=== PATIENT | female | born 1960 | race Caucasian/White ===

== ENCOUNTER → 2018-09-02 10:41 | Outpatient (CLI) | payer OTHER, SELFPAY ==
[2018-09-02 11:40] LABS: Alanine Aminotransferase 41 IU/L (9-52); Albumin 4.5 g/dL (3.5-5.0); Albumin Globulin Ratio 1.3 (1.0-2.8); Alkaline Phosphatase 100 U/L (38-126); Aspartate Aminotransferase 33 IU/L (14-36); BUN Creatinine Ratio 12.7 (6-22); Bilirubin Total 0.5 mg/dL (0.2-1.3); Blood Urea Nitrogen 14 mg/dL (7-17); Calcium 9.7 mg/dL (8.4-10.2); Carbon Dioxide 26 mmol/L (22-32); Chloride 103 mmol/L (98-107); Estimated Glomerular Filt Rate 50.7 mL/min (>60); Globulin 3.5 g/dL (1.7-4.1); Glucose 127 mg/dL (80-110); HEMOLYSIS < 15 (0-50); Potassium 4.4 mmol/L (3.4-5.1); Sodium 145 mmol/L (137-145)
== END ==
PROVIDERS: PCP Internal Medicine; Visit Provider Internal Medicine
DX: I10 Essential (primary) hypertension (principal)
CPT/HCPCS: 36415; 80053

== ENCOUNTER → 2019-02-26 13:19 | Outpatient (CLI) | payer OTHER, SELFPAY ==
--- NOTE | 2019-02-26 | DI.MG.S_ITS ---
BILATERAL DIGITAL SCREENING MAMMOGRAM 3D/2D WITH CAD: 02/26/2019 CLINICAL: Routine screening. Comparison is made to exams dated: 01/19/2018 mammogram, 05/08/2016 mammogram, and 06/09/2013 mammogram - [facility]. There are scattered fibroglandular elements in both breasts. Current study was also evaluated with a Computer Aided Detection (CAD) system. There are benign calcifications in both breasts. No significant masses, calcifications, or other findings are seen in either breast. There has been no significant interval change. IMPRESSION: There is no mammographic evidence of malignancy. A 1 year screening mammogram is recommended. This exam was interpreted at Station ID: [id number]. NOTE: For mammograms, a report in lay terms will be sent to the patient. Approximately 15% of breast malignancies will not be visualized mammographically. In the management of a palpable breast mass, a negative mammogram must not discourage biopsy of a clinically suspicious lesion. Electronically Signed By: Thierno johnston/prabhu:02/26/2019 16:13:33 letter sent: Normal Exam ACR BI-RADS Category 2: Benign Finding(s) 3342F
== END ==
PROVIDERS: PCP Internal Medicine; Visit Provider Internal Medicine
DX: Z12.31 Encounter for screening mammogram for malignant neoplasm of breast (principal)
CPT/HCPCS: 77063; 77067

== ENCOUNTER 2019-09-06 14:21 | Emergency (ER) | payer OTHER, SELFPAY ==
[2019-09-06 14:28] VITALS: BP 137/88; PULSE 102; RESP 18; TEMP 36.3; O2SAT 94
--- NOTE | 2019-09-06 14:33 | DI.RAD.S_ITS ---
PROCEDURE: XR CHEST 2V INDICATIONS: upper back pain, denies prov/pal, no known injury TECHNIQUE: 2 views of the chest were acquired. COMPARISON: None. FINDINGS: Surgical changes and devices: None. Lungs and pleura: Lungs are clear. No pleural effusions or pneumothorax. Mediastinum: Mediastinal contours are normal. Heart size is normal. Bones and chest wall: No suspicious bony abnormalities. Soft tissues appear unremarkable. IMPRESSION: No acute cardiopulmonary disease. Dictated by: Fawad Alvarez M.D. on 09/06/2019 at 15:09 Approved by: Fawad Alvarez M.D. on 09/06/2019 at 15:09
[2019-09-06 15:20] LABS: Add Manual Diff / Slide Review NO; Basophils Absolute Auto 100 /uL (0-100); Basophils Percent Auto 1.1 % (0-2); Eosinophils Absolute Auto 100 /uL (0-450); Hematocrit 41.3 % (36-46); Hemoglobin 13.6 g/dL (12.0-16.0); Lymphocytes Absolute Auto 2800 /uL (1100-4500); Lymphocytes Percent Auto 22.4 % (25-40); Mean Corpuscular Hemoglobin 29.3 PG (26-34); Mean Corpuscular Volume 88.9 fL (80-100); Monocytes Absolute Auto 1100 /uL (0-900); Monocytes Percent Auto 8.4 % (3-14); Neutrophils Absolute Auto 8500 /uL (1500-7000); Neutrophils Percent Auto 67.1 % (50-75); Platelet Count 299 X10^3/uL (150-400); Red Blood Cell Count 4.65 X10^6/uL (4.0-5.2); Red Cell Distribution Width 13.7 % (11.6-14.8); White Blood Cell Count 12.6 X10^3/uL (4.5-11.0)
[2019-09-06 15:30] LABS: Alanine Aminotransferase 17 IU/L (9-52); Albumin 4.3 g/dL (3.5-5.0); Albumin Globulin Ratio 1.2 (1.0-2.8); Alkaline Phosphatase 104 U/L (38-126); Aspartate Aminotransferase 22 IU/L (14-36); BUN Creatinine Ratio 13.3 (6-22); Bilirubin Total 0.5 mg/dL (0.2-1.3); Blood Urea Nitrogen 12 mg/dL (7-17); Calcium 9.8 mg/dL (8.4-10.2); Carbon Dioxide 31 mmol/L (22-32); Chloride 100 mmol/L (98-107); Estimated Glomerular Filt Rate > 60.0 mL/min (>60); Globulin 3.5 g/dL (1.7-4.1); Glucose 119 mg/dL (80-110); HEMOLYSIS < 15 (0-50); Potassium 4.1 mmol/L (3.4-5.1); Sodium 139 mmol/L (137-145); Total Protein 7.8 g/dL (6.3-8.2)
--- NOTE | 2019-09-06 15:31 | PC.NURSE ---
difficult to reproduce back pain, no known injury. CSM / neuro exam fully wnl. Denies nausea / vomiting/ shortness of breath, diaphorisis. Laying down and reading. No acute distress. Denies needs at this time.
[2019-09-06 15:42] LABS: Troponin I < 0.012 ng/mL (0.01-0.034)
--- NOTE | 2019-09-06 18:32 | ED_ITS ---
HPI - Back Pain/Injury General Chief Complaint: Back Pain/Injury Stated Complaint: Back/stomach pain Time Seen by Provider: 09/06/19 18:20 Source: patient Mode of arrival: Ambulatory Limitations: no limitations History of Present Illness HPI Narrative: 59-year-old female here for evaluation of lower abdominal pain w ith left being greater than right and also back pain. Patient states that her symptoms started approximately 3 days ago. Denies any nausea vomiting or change in bowel habits or urinary symptoms or vaginal bleeding. She states she does have a history of diverticulitis. She had 1 prior episode of this. She states that her abdominal pain feels similar to that however she has never had back pain associated with it. States the back pain is high apnea where her kidneys are it is bilateral. No specific trauma. has not tried anything for symptoms prior to arrival. She did go to the walk-in clinic who sent her to the emergency department for further evaluation Related Data Home Medications Medication Instructions Recorded Confirmed cetirizine 10 mg tablet 10 mg PO DAILY 09/10/18 09/06/19 Vitamin B-12 1 tab PO DAILY 09/06/19 09/06/19 esomeprazole magnesium 20 mg PO QPM 09/06/19 09/06/19 iron,carbonyl-vitamin C [Vitron-C] 1 tab PO DAILY 09/06/19 09/06/19 lisinopril 20 mg PO QPM 09/06/19 09/06/19 Previous Rx's Medication Instructions Recorded ciprofloxacin HCl [Cipro] 500 mg PO BID 10 Days #20 tab 09/06/19 metronidazole [Flagyl] 500 mg PO TID 10 Days #30 tab 09/06/19 Allergies Allergy/AdvReac Type Severity Reaction Status Date / Time CODEINE Allergy Mild NAUSEA AND Uncoded 09/10/18 13:34 UNABLE TO SLEEP From BENADRYL Allergy Mild ITCHING Uncoded 09/10/18 13:34 From TALWIN Allergy Mild NAUSEA Uncoded 09/10/18 13:34 MORPHINE Allergy Mild MEZA & Uncoded 09/10/18 13:34 VOMITING Review of Systems Constitutional Constitutional: Denies fever(s) Cardiovascular Cardiovascular: Denies chest pain and Denies dyspnea Respiratory Respiratory: Denies dyspnea Gastrointestinal Gastrointestinal: Reports abdominal pain, Denies change in stool character, Denies nausea and Denies vomiting Genitourinary Genitourinary: Denies dysuria and Denies vaginal discharge Musculoskeletal Musculoskeletal: Reports back pain, Denies myalgias and Denies arthralgias Integumentary/Breasts Skin/Breast: Denies lesions and Denies rash Neurologic Neurologic: Denies behavioral changes Psychiatric Psychiatric: Denies behavioral changes Hematologic/Lymphatic Hematologic/Lymphatic: Denies easy bleeding and Denies easy bruising Allergic/Immunologic Allergic/Immunologic: Denies urticaria [facility] Medical History (Updated 09/06/19 @ 21:38 by Hernan Armstrong DO) Chronic renal failure, stage 3 (moderate) (Chronic) Diverticulitis (Acute) Essential hypertension (Chronic 09/17/12) Social History marital status: number of children: 6 (2 biological, 4 fosters) household members: family and friend(s) lives independently: Yes caregiver/support person: No housing: house pets and animals: Yes education level: high school (Few years of college) 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 1-2 drinks a year) substance use type: does not use Exam Initial Vital Signs Initial Vital Signs: Vital Signs Temperature 97.4 F L 09/06/19 14:28 Pulse Rate 102 H 09/06/19 14:28 Respiratory Rate 18 09/06/19 14:28 Blood Pressure 137/88 09/06/19 14:28 Pulse Oximetry 94 09/06/19 14:28 Const General: cooperative, comfortable, well developed and well groomed Orientation: alert, awake and oriented x3 HENMT Head: normal to inspection and normocephalic Resp Effort & Inspection: normal respiratory effort Auscultation: clear to auscultation bilaterally Cardio Rate: regular rate Rhythm: regular rhythm GI Inspection: non-distended Palpation: soft and tender (Lower abdomen) Back/Spine/Pelvis Other: Mid thoracic bilateral back pain to palpation Skin Lesions: no lesions Rashes: no rashes Neuro General: alert, awake and oriented x3 Cognition: normal cognition Speech: speech normal Extrem General: normal to inspection and capillary refill normal Course Orders Ordered: ED Orders 09/06/19 14:31 EKG-12 Lead Stat 09/06/19 14:33 Chest [XR chest 2V] Stat 09/06/19 15:12 Complete Blood Count AUTO DIFF Stat Comprehensive Metabolic Panel Stat Troponin I Stat 09/06/19 18:43 CT abdomen pelvis w con Stat Discontinued Medications Ciprofloxacin (Cipro) 500 mg PO NOW ONE Stop: 09/06/19 20:21 Last Admin: 09/06/19 20:25 Dose: 500 mg Documented by: KAYDEN Sodium Chloride (Normal Saline 0.9%) 1,000 mls @ 1,000 mls/hr IV BOLUS ONE Stop: 09/06/19 19:42 Last Infusion: 09/06/19 20:43 Dose: 0 mls/hr Documented by: Admin: 09/06/19 19:28 Dose: 1,000 mls/hr Documented by: FATOU Metronidazole (Metronidazole) 500 mg PO NOW ONE Stop: 09/06/19 20:21 Last Admin: 09/06/19 20:25 Dose: 500 mg Documented by: KAYDEN Vital Signs Vital signs: Vital Signs - 8 hr 09/06/19 14:28 09/06/19 20:37 Temperature 97.4 F L Pulse Rate 102 H 78 Respiratory Rate 18 16 Blood Pressure 137/88 Blood Pressure [Left Wrist] 142/72 H Pulse Oximetry 94 97 MDM - Back Pain/Injury Lab Data Attestation: I reviewed the patient's lab results. Result diagrams: 09/06/19 15:12 09/06/19 15:12 Labs: Lab Results 09/06/19 09/06/19 Range/Units 15:12 15:12 WBC 12.6 H (4.5-11.0) X10^3/uL RBC 4.65 (4.0-5.2) X10^6/uL Hgb 13.6 (12.0-16.0) g/dL Hct 41.3 (36-46) % MCV 88.9 (80-100) fL MCH 29.3 (26-34) PG MCHC 33.0 (30-36) % RDW 13.7 (11.6-14.8) % Plt Count 299 (150-400) X10^3/uL Neut % (Auto) 67.1 (50-75) % Lymph % (Auto) 22.4 L (25-40) % [place] % (Auto) 8.4 (3-14) % Eos % (Auto) 1.0 L (2-4) % Baso % (Auto) 1.1 (0-2) % Neut # (Auto) 8500 H (1215-6659) /uL Lymph # (Auto) 2800 (9385-7888) /uL [place] # (Auto) 1100 H (0-900) /uL Eos # (Auto) 100 (0-450) /uL Baso # (Auto) 100 (0-100) /uL Sodium 139 (137-145) mmol/L Potassium 4.1 (3.4-5.1) mmol/L Chloride 100 (98-107) mmol/L Carbon Dioxide 31 (22-32) mmol/L BUN 12 (7-17) mg/dL Creatinine 0.90 (0.52-1.04) mg/dL Estimated GFR > 60.0 (>60) mL/min BUN/Creatinine Ratio 13.3 (6-22) Glucose 119 H (80-110) mg/dL Calcium 9.8 (8.4-10.2) mg/dL Total Bilirubin 0.5 (0.2-1.3) mg/dL AST 22 (14-36) IU/L ALT 17 (9-52) IU/L Alkaline Phosphatase 104 (38-126) U/L Troponin I < 0.012 (0.01-0.034) ng/mL Total Protein 7.8 (6.3-8.2) g/dL Albumin 4.3 (3.5-5.0) g/dL Globulin 3.5 (1.7-4.1) g/dL Albumin/Globulin Ratio 1.2 (1.0-2.8) Imaging Data CT scan - abdomen: Radiologist's impression: [address] [address] [address] Scan Report Signed Patient: Concha Fung LMR#: [id number] : 8Acct:[id number] Age/Sex: 59 / FDate of Service: 09/06/19 Loc: ED Accession Number: [id number] Procedure: CT abdomen pelvis w con Ordering Provider: Hernan Armstrong D.O. PROCEDURE: CT ABDOMEN PELVIS W CON INDICATIONS: Left-sided abdominal pain TECHNIQUE: After the administration of intravenous contrast, 5 mm thick sections acquired from the diaphragm to the symphysis. 5 mm coronal and sagittal reformats were acquired. For radiation dose reduction, the following was used: automated exposure control, adjustment of mA and/or kV according to patient size. COMPARISON: [facility], CT, ABDOMEN/PELVIS WITH CONTRAST, 10/13/2007, 16:48. FINDINGS: Image quality: Excellent. ABDOMEN: Lung bases: Lung bases are clear. Heart size is normal. Solid organs: Liver is normal in size and enhancement. There is hepatic steatosis. Gallbladder is within normal limits. Biliary system is non dilated. Pancreas enhances normally. Spleen is normal in size and enhancement. No adrenal nodules. Kidneys demonstrate normal size and enhancement, without hydronephrosis. Peritoneum and bowel: There is no evidence of bowel obstruction. No abnormal gastric wall R. small bowel wall thickening. Small hiatal hernia is seen. There is descending colon and sigmoid colon diverticulosis with no abnormal colonic wall thickening or pericolonic fat stranding to suggest acute diverticulitis. No free fluid or free air. No evidence of acute appendicitis. Nodes and vessels: No retroperitoneal or mesenteric adenopathy by size criteria. Aorta and inferior vena cava are normal in size. Miscellaneous: No ventral hernias. PELVIS: Genitourinary: Bladder wall thickness is normal. Miscellaneous: No inguinal hernias or adenopathy. Bones: No suspicious bony lesions. No vertebral body compression fractures. Minimal anterolisthesis of L3 on L4 and L4 on L5 is seen. IMPRESSION: 1. Descending colon and sigmoid colon diverticulosis. No CT evidence of acute diverticulitis. No evidence of acute appendicitis. No bowel obstruction. No free fluid or free air. Small hiatal hernia. 2. Hepatic steatosis. Dictated by: Slava Waterman M.D. on 09/06/2019 at 19:55 Approved by: Slava Waterman M.D. on 09/06/2019 at 19:58 Chest x-ray: Radiologist's impression: Concha Fung 59 [address] [place] [address] XRay Report Signed Patient: Concha Fung LMR#: [id number] : 8Acct:[id number] Age/Sex: 59 / FDate of Service: 09/06/19 Loc: ED Accession Number: [id number] Procedure: XR chest 2V Ordering Provider: Alexa Jennings D.O. PROCEDURE: XR CHEST 2V INDICATIONS: upper back pain, denies prov/pal, no known injury TECHNIQUE: 2 views of the chest were acquired. COMPARISON: None. FINDINGS: Surgical changes and devices: None. Lungs and pleura: Lungs are clear. No pleural effusions or pneumothorax. Mediastinum: Mediastinal contours are normal. Heart size is normal. Bones and chest wall: No suspicious bony abnormalities. Soft tissues appear unremarkable. IMPRESSION: No acute cardiopulmonary disease. Dictated by: Fawad Alvarez M.D. on 09/06/2019 at 15:09 Approved by: Fawad Alvarez M.D. on 09/06/2019 at 15:09 ECG Data Attestation: I personally reviewed and interpreted this ECG as follows: Prior ECG tracings: not available for review Interpretation: Sinus rhythm Ventricular rate 85 Normal QRS Normal QTC No ST T wave changes MDM Narrative Medical decision making narrative: Patient is nontoxic appearing if she has a relatively benign abdominal exam. CT scan is consistent with diverticulitis in this would explain her elevated white blood cell count. Please her back pain is musculoskeletal and/or related to the diverticulitis. Low suspicion for AAA. Patient was given 1st dose of antibiotics here in the emergency department will send home with remainder. She was given return precautions and follow-up instructions. She expressed understanding and agreement plan. Discharge Plan Departure Patient Disposition: Home Clinical Impression: Diverticulitis Discharge Date/Time: 09/06/19 20:43 Instructions: DI for Diverticulitis Activity Restrictions/Additional Instructions: Take the medications as directed starting tomorrow like we discussed. Contact your primary provider for follow-up. Return to the emergency department for any new or worsening symptoms Prescriptions: New ciprofloxacin HCl [Cipro] 500 mg tablet 500 mg PO BID 10 Days Qty: 20 RF: 0 metronidazole [Flagyl] 500 mg tablet 500 mg PO TID 10 Days Qty: 30 RF: 0 No Action cetirizine [Zyrtec] 10 mg tablet 10 mg PO DAILY RF: 0 lisinopril 20 mg tablet 20 mg PO QPM RF: 0 esomeprazole magnesium 20 mg Tablet,Delayed Release (Dr/Ec) 20 mg PO QPM RF: 0 Vitron-C 65 mg iron- 125 mg Tablet,Delayed Release (Dr/Ec) 1 tab PO DAILY RF: 0 Vitamin B-12 1 tab PO DAILY RF: 0 Referrals: Kaden Stafford MD [Primary Care Provider] -
--- NOTE | 2019-09-06 18:43 | DI.CT.S_ITS ---
PROCEDURE: CT ABDOMEN PELVIS W CON INDICATIONS: Left-sided abdominal pain TECHNIQUE: After the administration of intravenous contrast, 5 mm thick sections acquired from the diaphragm to the symphysis. 5 mm coronal and sagittal reformats were acquired. For radiation dose reduction, the following was used: automated exposure control, adjustment of mA and/or kV according to patient size. COMPARISON: [facility], CT, ABDOMEN/PELVIS WITH CONTRAST, 10/13/2007, 16:48. FINDINGS: Image quality: Excellent. ABDOMEN: Lung bases: Lung bases are clear. Heart size is normal. Solid organs: Liver is normal in size and enhancement. There is hepatic steatosis. Gallbladder is within normal limits. Biliary system is non dilated. Pancreas enhances normally. Spleen is normal in size and enhancement. No adrenal nodules. Kidneys demonstrate normal size and enhancement, without hydronephrosis. Peritoneum and bowel: There is no evidence of bowel obstruction. No abnormal gastric wall R. small bowel wall thickening. Small hiatal hernia is seen. There is descending colon and sigmoid colon diverticulosis with no abnormal colonic wall thickening or pericolonic fat stranding to suggest acute diverticulitis. No free fluid or free air. No evidence of acute appendicitis. Nodes and vessels: No retroperitoneal or mesenteric adenopathy by size criteria. Aorta and inferior vena cava are normal in size. Miscellaneous: No ventral hernias. PELVIS: Genitourinary: Bladder wall thickness is normal. Miscellaneous: No inguinal hernias or adenopathy. Bones: No suspicious bony lesions. No vertebral body compression fractures. Minimal anterolisthesis of L3 on L4 and L4 on L5 is seen. IMPRESSION: 1. Descending colon and sigmoid colon diverticulosis. No CT evidence of acute diverticulitis. No evidence of acute appendicitis. No bowel obstruction. No free fluid or free air. Small hiatal hernia. 2. Hepatic steatosis. Dictated by: Slava Waterman M.D. on 09/06/2019 at 19:55 Approved by: Slava Waterman M.D. on 09/06/2019 at 19:58
[2019-09-06] MEDS: SODIUM CHLORIDE 0.9% 1,000 ML 1000 ML IV (19:28)
[2019-09-06] MEDS: CIPROFLOXACIN 500 MG TABLET PO (20:25)
[2019-09-06] MEDS: metroNIDAZOLE 250 MG TABLET 500 MG PO (20:25)
[2019-09-06 20:37] VITALS: BP 142/72; PULSE 78; RESP 16; O2SAT 97
== END 2019-09-06 20:43 | disposition home or self-care (01) ==
PROVIDERS: Emergency Medicine; Emergency Provider Emergency Medicine; PCP Internal Medicine
DX: K57.92 Diverticulitis of intestine, part unspecified, without perforation or abscess without bleeding (principal)
CPT/HCPCS: 36415; 71046; 74177; 80053; 84484; 85025; 93005; 96360; 99283; 99285; Q9967

== ENCOUNTER 2019-10-23 15:56 | Emergency (ER) | payer OTHER, SELFPAY ==
--- NOTE | 2019-10-23 15:57 | DI.RAD.S_ITS ---
PROCEDURE: XR CHEST 1V INDICATIONS: chest pain TECHNIQUE: One view of the chest was acquired. COMPARISON: [facility], CT, CT ABDOMEN PELVIS W CON, 09/06/2019, 19:02. [facility], CR, XR CHEST 2V, 09/06/2019, 14:40. FINDINGS: Surgical changes and devices: None. Lungs and pleura: Lungs are clear. No pleural effusions or pneumothorax. Mediastinum: Mediastinal contours appear normal. Heart size is normal. Bones and chest wall: No suspicious bony lesions. Overlying soft tissues appear unremarkable. IMPRESSION: Portable chest within normal limits. Dictated by: Livan Montenegro M.D. on 10/23/2019 at 15:22 Approved by: Livan Montenegro M.D. on 10/23/2019 at 15:23
[2019-10-23 16:03] VITALS: BP 185/93; PULSE 87; RESP 18; TEMP 37.1; O2SAT 97
[2019-10-23 16:20] LABS: Add Manual Diff / Slide Review NO; Basophils Absolute Auto 100 /uL (0-100); Basophils Percent Auto 1.1 % (0-2); Eosinophils Absolute Auto 100 /uL (0-450); Eosinophils Percent Auto 1.5 % (2-4); Hematocrit 40.5 % (36-46); Hemoglobin 13.5 g/dL (12.0-16.0); Lymphocytes Absolute Auto 3400 /uL (1100-4500); Lymphocytes Percent Auto 37.2 % (25-40); Mean Corpuscular HGB Conc 33.4 % (30-36); Mean Corpuscular Hemoglobin 29.8 PG (26-34); Mean Corpuscular Volume 89.2 fL (80-100); Monocytes Absolute Auto 800 /uL (0-900); Monocytes Percent Auto 8.3 % (3-14); Neutrophils Absolute Auto 4800 /uL (1500-7000); Neutrophils Percent Auto 51.9 % (50-75); Platelet Count 323 X10^3/uL (150-400); Red Blood Cell Count 4.54 X10^6/uL (4.0-5.2); Red Cell Distribution Width 13.9 % (11.6-14.8); White Blood Cell Count 9.2 X10^3/uL (4.5-11.0)
--- NOTE | 2019-10-23 16:23 | ED.CHESTPAIN ---
HPI - Chest Pain <Iris Felix DO - Last Filed: 10/26/19 07:28> General Chief Complaint: Chest Pain Stated Complaint: thinks having a heart attack Time Seen by Provider: 10/23/19 16:16 Source: patient Mode of arrival: Family Vehicle Limitations: no limitations History of Present Illness HPI narrative: Patient is a 59-year-old female who presents with left arm pain. She said it started while she was bent over with hack saw using her left arm she felt extremely dizzy and lightheaded and her arm started hurting especially her biceps. She felt lightheaded upon standing. At no time did she have chest pain or heart palpitations. However she came to the ER for further evaluation of possible heart attack. She denies any shortness of breath with exertion. She states that she has had some left arm biceps pain especially will she is holding her tablet while reading. No numbness or tingling. This has been off and on for sometime. Related Data Home Medications Medication Instructions Recorded Confirmed cetirizine 10 mg tablet 10 mg PO DAILY 09/10/18 09/10/19 Vitamin B-12 1 tab PO DAILY 09/06/19 09/10/19 esomeprazole magnesium 20 mg PO QPM 09/06/19 09/10/19 iron,carbonyl-vitamin C [Vitron-C] 1 tab PO DAILY 09/06/19 09/10/19 Previous Rx's Medication Instructions Recorded lisinopril 20 mg tablet See Rx Instructions .ROUTE 09/13/19 .COMPLEX #90 tablet Allergies Allergy/AdvReac Type Severity Reaction Status Date / Time CODEINE Allergy Mild NAUSEA AND Uncoded 09/10/19 08:52 UNABLE TO SLEEP From BENADRYL Allergy Mild ITCHING Uncoded 09/10/19 08:52 From TALWIN Allergy Mild NAUSEA Uncoded 09/10/19 08:52 MORPHINE Allergy Mild MEZA & Uncoded 09/10/19 08:52 VOMITING Review of Systems <DO Nani Jackson Last Filed: 10/26/19 07:28> Review of Systems ROS Unobtainable: All systems reviewed & are unremarkable except as noted in HPI and below Constitutional Constitutional: Denies chills, Denies fever(s), Denies lethargy and Denies weakness Eyes Eyes: Denies change in vision, Denies eye discharge, Denies irritation and Denies loss of vision ENT Ears, Nose, Mouth, and Throat: Denies change in voice, Denies neck pain and Denies sore throat Cardiovascular Cardiovascular: Denies chest pain, Denies rapid heart rate, Denies pedal edema, Denies irregular heart rhythm and Reports lightheadedness Musculoskeletal Musculoskeletal: Reports as per HPI and Denies neck pain Comments: Left arm pain Integumentary/Breasts Skin/Breast: Denies pruritus, Denies erythema, Denies rash and Denies wounds Neurologic Neurologic: Denies loss of vision and Denies weakness Patient History <Iris Felix DO - Last Filed: 10/26/19 07:28> Medical History Chronic renal failure, stage 3 (moderate) (Chronic) Diverticular disease of colon (Acute) Diverticulitis (Acute) Essential hypertension (Chronic 09/17/12) Social History marital status: number of children: 6 (2 biological, 4 fosters) household members: family and friend(s) lives independently: Yes caregiver/support person: No housing: house pets and animals: Yes education level: high school (Few years of college) 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 1-2 drinks a year) substance use type: does not use alcohol intake frequency: holidays/special occasions only Substance Use Type: does not use Exam <Iris Felix DO - Last Filed: 10/26/19 07:28> Initial Vital Signs Initial Vital Signs: Vital Signs Temperature 98.8 F 10/23/19 16:03 Pulse Rate 87 10/23/19 16:03 Respiratory Rate 18 10/23/19 16:03 Blood Pressure 185/93 H 10/23/19 16:03 Pulse Oximetry 97 10/23/19 16:03 GENERAL: Overweight well-appearing female and in no acute distress. HEENT: Head atraumatic,EOMI, pupils reactive, face symmetric CARDIOVASCULAR: Regular rate and rhythm without murmurs, rubs or gallops. RESPIRATORY: Breath sounds equal bilaterally, no wheezes rales or rhonchi. ABDOMEN: Soft, nontender. Normoactive bowel sounds all 4 quadrants. No guarding or rebound. EXTREMITIES: Normal range of motion, no clubbing or edema. Neurovascularly intact. Left arm and biceps slightly tender to touch NEUROLOGICAL: Alert and oriented x4.Normal gait and speech. Cranial nerves II through XII grossly intact. SKIN: Warm, dry, no laceration, no petechiae, no rashes or lesions. <Hernan Armstrong DO - Last Filed: 10/23/19 18:57> Initial Vital Signs Initial Vital Signs: Vital Signs Temperature 98.8 F 10/23/19 16:03 Pulse Rate 87 10/23/19 16:03 Respiratory Rate 18 10/23/19 16:03 Blood Pressure 185/93 H 10/23/19 16:03 Pulse Oximetry 97 10/23/19 16:03 Scores <Iris Felix DO - Last Filed: 10/26/19 07:28> HEART Score Heart Score history: Slightly Suspicious Heart Score EKG: Normal Heart Score Age: 45-64 years old Heart Score troponin: < or = to normal limit Course <Iris Felix DO - Last Filed: 10/26/19 07:28> Orders Ordered: ED Orders 10/23/19 15:57 XR chest 1V Stat EKG-12 Lead Stat 10/23/19 16:09 Complete Blood Count AUTO DIFF Stat Comprehensive Metabolic Panel Stat Lipase Stat Partial Thromboplastin Time Stat Prothrombin Time INR Stat Troponin & CK Cardiac Panel Stat 10/23/19 18:19 Troponin I Stat Vital Signs Vital signs: Vital Signs - 8 hr 10/23/19 16:03 Temperature 98.8 F Pulse Rate 87 Respiratory Rate 18 Blood Pressure 185/93 H Pulse Oximetry 97 <Hernan Armstrong DO - Last Filed: 10/23/19 18:57> Orders Ordered: ED Orders 10/23/19 15:57 XR chest 1V Stat EKG-12 Lead Stat 10/23/19 16:09 Complete Blood Count AUTO DIFF Stat Comprehensive Metabolic Panel Stat Lipase Stat Partial Thromboplastin Time Stat Prothrombin Time INR Stat Troponin & CK Cardiac Panel Stat 10/23/19 18:19 Troponin I Stat Vital Signs Vital signs: Vital Signs - 8 hr 10/23/19 16:03 Temperature 98.8 F Pulse Rate 87 Respiratory Rate 18 Blood Pressure 185/93 H Pulse Oximetry 97 MDM - Chest Pain <Iris Felix DO - Last Filed: 10/26/19 07:28> Lab Data Attestation: I reviewed the patient's lab results. Result diagrams: 10/23/19 16:09 10/23/19 16:09 Labs: Lab Results 10/23/19 10/23/19 10/23/19 Range/Units 16:09 16:09 16:09 WBC 9.2 (4.5-11.0) X10^3/uL RBC 4.54 (4.0-5.2) X10^6/uL Hgb 13.5 (12.0-16.0) g/dL Hct 40.5 (36-46) % MCV 89.2 (80-100) fL MCH 29.8 (26-34) PG MCHC 33.4 (30-36) % RDW 13.9 (11.6-14.8) % Plt Count 323 (150-400) X10^3/uL Neut % (Auto) 51.9 (50-75) % Lymph % (Auto) 37.2 (25-40) % [place] % (Auto) 8.3 (3-14) % Eos % (Auto) 1.5 L (2-4) % Baso % (Auto) 1.1 (0-2) % Neut # (Auto) 4800 (7691-0820) /uL Lymph # (Auto) 3400 (2537-5427) /uL [place] # (Auto) 800 (0-900) /uL Eos # (Auto) 100 (0-450) /uL Baso # (Auto) 100 (0-100) /uL PT 11.3 (10.1-12.7) SECONDS INR 1.0 (0.9-1.3) APTT 33 (26.4-36.2) SECONDS Sodium 139 (137-145) mmol/L Potassium 3.9 (3.4-5.1) mmol/L Chloride 102 (98-107) mmol/L Carbon Dioxide 26 (22-32) mmol/L BUN 11 (7-17) mg/dL Creatinine 1.00 (0.52-1.04) mg/dL Estimated GFR 56.4 L (>60) mL/min BUN/Creatinine Ratio 11.0 (6-22) Glucose 116 H (80-110) mg/dL Calcium 9.0 (8.4-10.2) mg/dL Total Bilirubin 0.4 (0.2-1.3) mg/dL AST 28 (14-36) IU/L ALT 22 (<35) IU/L Alkaline Phosphatase 117 (38-126) U/L Total Creatine Kinase 111 (30-135) U/L CK-MB (CK-2) 0.66 (<2.37) ng/mL CK-MB (CK-2) Rel Index 0.6 L (1.5-5.0) % Troponin I < 0.012 (0.01-0.034) ng/mL Total Protein 7.5 (6.3-8.2) g/dL Albumin 4.3 (3.5-5.0) g/dL Globulin 3.2 (1.7-4.1) g/dL Albumin/Globulin Ratio 1.3 (1.0-2.8) Lipase 62 (23-300) U/L 10/23/ Range/Units 18:19 WBC (4.5-11.0) X10^3/uL RBC (4.0-5.2) X10^6/uL Hgb (12.0-16.0) g/dL Hct (36-46) % MCV (80-100) fL MCH (26-34) PG MCHC (30-36) % RDW (11.6-14.8) % Plt Count (150-400) X10^3/uL Neut % (Auto) (50-75) % Lymph % (Auto) (25-40) % [place] % (Auto) (3-14) % Eos % (Auto) (2-4) % Baso % (Auto) (0-2) % Neut # (Auto) (0505-2095) /uL Lymph # (Auto) (1285-1682) /uL [place] # (Auto) (0-900) /uL Eos # (Auto) (0-450) /uL Baso # (Auto) (0-100) /uL PT (10.1-12.7) SECONDS INR (0.9-1.3) APTT (26.4-36.2) SECONDS Sodium (137-145) mmol/L Potassium (3.4-5.1) mmol/L Chloride (98-107) mmol/L Carbon Dioxide (22-32) mmol/L BUN (7-17) mg/dL Creatinine (0.52-1.04) mg/dL Estimated GFR (>60) mL/min BUN/Creatinine Ratio (6-22) Glucose (80-110) mg/dL Calcium (8.4-10.2) mg/dL Total Bilirubin (0.2-1.3) mg/dL AST (14-36) IU/L ALT (<35) IU/L Alkaline Phosphatase (38-126) U/L Total Creatine Kinase (30-135) U/L CK-MB (CK-2) (<2.37) ng/mL CK-MB (CK-2) Rel Index (1.5-5.0) % Troponin I < 0.012 (0.01-0.034) ng/mL Total Protein (6.3-8.2) g/dL Albumin (3.5-5.0) g/dL Globulin (1.7-4.1) g/dL Albumin/Globulin Ratio (1.0-2.8) Lipase (23-300) U/L ECG Data Attestation: I personally reviewed and interpreted this ECG as follows: Prior ECG tracings: available for review Interpretation: Rate 85 p.r. interval 147 QRS 70 a QTC [address] elevations or T-wave inversions similar to previous EKG MDM Narrative Medical decision making narrative: The patient is left-handed bent over sawing aggressively this is likely musculoskeletal dizziness and lightheadedness is also probably related to her position. However she does have some risk factors will rule out. Signed out to Dr. Armstrong for repeat trop. <Hernan Armstrong, - Last Filed: 10/23/19 18:57> Lab Data Labs: Lab Results 10/23/19 10/23/19 10/23/19 Range/Units 16:09 16:09 16:09 WBC 9.2 (4.5-11.0) X10^3/uL RBC 4.54 (4.0-5.2) X10^6/uL Hgb 13.5 (12.0-16.0) g/dL Hct 40.5 (36-46) % MCV 89.2 (80-100) fL MCH 29.8 (26-34) PG MCHC 33.4 (30-36) % RDW 13.9 (11.6-14.8) % Plt Count 323 (150-400) X10^3/uL Neut % (Auto) 51.9 (50-75) % Lymph % (Auto) 37.2 (25-40) % [place] % (Auto) 8.3 (3-14) % Eos % (Auto) 1.5 L (2-4) % Baso % (Auto) 1.1 (0-2) % Neut # (Auto) 4800 (3532-6997) /uL Lymph # (Auto) 3400 (4898-8827) /uL [place] # (Auto) 800 (0-900) /uL Eos # (Auto) 100 (0-450) /uL Baso # (Auto) 100 (0-100) /uL PT 11.3 (10.1-12.7) SECONDS INR 1.0 (0.9-1.3) APTT 33 (26.4-36.2) SECONDS Sodium 139 (137-145) mmol/L Potassium 3.9 (3.4-5.1) mmol/L Chloride 102 (98-107) mmol/L Carbon Dioxide 26 (22-32) mmol/L BUN 11 (7-17) mg/dL Creatinine 1.00 (0.52-1.04) mg/dL Estimated GFR 56.4 L (>60) mL/min BUN/Creatinine Ratio 11.0 (6-22) Glucose 116 H (80-110) mg/dL Calcium 9.0 (8.4-10.2) mg/dL Total Bilirubin 0.4 (0.2-1.3) mg/dL AST 28 (14-36) IU/L ALT 22 (<35) IU/L Alkaline Phosphatase 117 (38-126) U/L Total Creatine Kinase 111 (30-135) U/L CK-MB (CK-2) 0.66 (<2.37) ng/mL CK-MB (CK-2) Rel Index 0.6 L (1.5-5.0) % Troponin I < 0.012 (0.01-0.034) ng/mL Total Protein 7.5 (6.3-8.2) g/dL Albumin 4.3 (3.5-5.0) g/dL Globulin 3.2 (1.7-4.1) g/dL Albumin/Globulin Ratio 1.3 (1.0-2.8) Lipase 62 (23-300) U/L 10/23/19 Range/Units 18:19 WBC (4.5-11.0) X10^3/uL RBC (4.0-5.2) X10^6/uL Hgb (12.0-16.0) g/dL Hct (36-46) % MCV (80-100) fL MCH (26-34) PG MCHC (30-36) % RDW (11.6-14.8) % Plt Count (150-400) X10^3/uL Neut % (Auto) (50-75) % Lymph % (Auto) (25-40) % [place] % (Auto) (3-14) % Eos % (Auto) (2-4) % Baso % (Auto) (0-2) % Neut # (Auto) (6573-1704) /uL Lymph # (Auto) (2106-1724) /uL [place] # (Auto) (0-900) /uL Eos # (Auto) (0-450) /uL Baso # (Auto) (0-100) /uL PT (10.1-12.7) SECONDS INR (0.9-1.3) APTT (26.4-36.2) SECONDS Sodium (137-145) mmol/L Potassium (3.4-5.1) mmol/L Chloride (98-107) mmol/L Carbon Dioxide (22-32) mmol/L BUN (7-17) mg/dL Creatinine (0.52-1.04) mg/dL Estimated GFR (>60) mL/min BUN/Creatinine Ratio (6-22) Glucose (80-110) mg/dL Calcium (8.4-10.2) mg/dL Total Bilirubin (0.2-1.3) mg/dL AST (14-36) IU/L ALT (<35) IU/L Alkaline Phosphatase (38-126) U/L Total Creatine Kinase (30-135) U/L CK-MB (CK-2) (<2.37) ng/mL CK-MB (CK-2) Rel Index (1.5-5.0) % Troponin I < 0.012 (0.01-0.034) ng/mL Total Protein (6.3-8.2) g/dL Albumin (3.5-5.0) g/dL Globulin (1.7-4.1) g/dL Albumin/Globulin Ratio (1.0-2.8) Lipase (23-300) U/L MDM Narrative Medical decision making narrative: Dr Armstrong: Received turned over from day provider. Waiting for 2nd troponin. Reviewed patient's history and physical. Perform my own independent exam. Second troponin is negative. Patient's history is not consistent with ACS. Given her EKG and 2-troponins I feel that this is unlikely. Rest of her workup here is unremarkable. I did discuss the patient about talk with her primary doctor about getting scheduled for a stress test. She was given return precautions and follow-up instructions. She expressed understanding and agreement plan. Discharge Plan Departure Patient Disposition: Home Clinical Impression: Atypical chest pain Discharge Date/Time: 10/23/19 19:08 Instructions: DI for Atypical Chest Pain Activity Restrictions/Additional Instructions: *You have been diagnosed with atypical chest pain *What to do: I believe your discomfort today is likely related to her positioning and activity. However you still may require outpatient workup such as stress test and echocardiogram *Continue to take medications as directed *Follow up with your primary care provider in 2-3 days *Return to ER if you should have increasing chest pain shortness of breath all arm pain dizziness lightheadedness or any new, worsening or concerning symptoms Prescriptions: No Action lisinopril 20 mg tablet See Rx Instructions .ROUTE .COMPLEX Qty: 90 RF: 3 cetirizine [Zyrtec] 10 mg tablet 10 mg PO DAILY RF: 0 esomeprazole magnesium 20 mg Tablet,Delayed Release (Dr/Ec) 20 mg PO QPM RF: 0 Vitron-C 65 mg iron- 125 mg Tablet,Delayed Release (Dr/Ec) 1 tab PO DAILY RF: 0 Vitamin B-12 1 tab PO DAILY RF: 0 Referrals: Kaden Stafford MD [Primary Care Provider] -
[2019-10-23 16:28] LABS: Prothrombin Time 11.3 SECONDS (10.1-12.7)
[2019-10-23 16:31] LABS: PTT Partial Thromboplastin Tim 33 SECONDS (26.4-36.2)
[2019-10-23 16:32] LABS: Alanine Aminotransferase 22 IU/L (<35); Albumin 4.3 g/dL (3.5-5.0); Albumin Globulin Ratio 1.3 (1.0-2.8); Alkaline Phosphatase 117 U/L (38-126); Aspartate Aminotransferase 28 IU/L (14-36); Bilirubin Total 0.4 mg/dL (0.2-1.3); Blood Urea Nitrogen 11 mg/dL (7-17); Carbon Dioxide 26 mmol/L (22-32); Chloride 102 mmol/L (98-107); Creatine Kinase 111 U/L (30-135); Estimated Glomerular Filt Rate 56.4 mL/min (>60); Globulin 3.2 g/dL (1.7-4.1); Glucose 116 mg/dL (80-110); HEMOLYSIS < 15 (0-50); Lipase 62 U/L (23-300); Potassium 3.9 mmol/L (3.4-5.1); Sodium 139 mmol/L (137-145); Total Protein 7.5 g/dL (6.3-8.2)
[2019-10-23 16:44] LABS: Troponin I < 0.012 ng/mL (0.01-0.034)
[2019-10-23 16:48] LABS: CKMB % Relative Index 0.6 % (1.5-5.0); Creatine Kinase MB 0.66 ng/mL (<2.37)
[2019-10-23 17:00] VITALS: BP 138/80; PULSE 79; RESP 16; O2SAT 96
[2019-10-23 17:30] VITALS: BP 150/81; PULSE 77; RESP 16; O2SAT 96
[2019-10-23 18:00] VITALS: BP 138/75; PULSE 81; RESP 16; O2SAT 96
[2019-10-23 18:47] LABS: Troponin I < 0.012 ng/mL (0.01-0.034)
[2019-10-23 19:06] VITALS: BP 155/88; PULSE 78; RESP 15; O2SAT 99
[2019-10-23 19:07] VITALS: BP 146/73; PULSE 70; RESP 17; O2SAT 97
== END 2019-10-23 19:08 | disposition home or self-care (01) ==
PROVIDERS: Emergency Medicine; Emergency Provider Emergency Medicine; PCP Internal Medicine
DX: R07.89 Other chest pain (principal)
CPT/HCPCS: 36415; 71045; 80053; 82550; 82553; 83690; 84484; 85025; 85610; 85730; 93005; 99283; 99285

== ENCOUNTER → 2020-09-23 15:35 | Outpatient (CLI) | payer OTHER, SELFPAY ==
--- NOTE | 2020-09-23 15:35 | DI.MG.S_ITS ---
BILATERAL DIGITAL SCREENING MAMMOGRAM 3D/2D WITH CAD: 09/23/2020 CLINICAL: Routine screening. Comparison is made to exams dated: 02/26/2019 mammogram, 01/19/2018 mammogram, and 05/08/2016 mammogram - [facility]. There are scattered fibroglandular elements in both breasts. Current study was also evaluated with a Computer Aided Detection (CAD) system. There are benign calcifications in both breasts. No significant masses, calcifications, or other findings are seen in either breast. There has been no significant interval change. IMPRESSION: BENIGN There is no mammographic evidence of malignancy. A 1 year screening mammogram is recommended. This exam was interpreted at Station ID: [id number]. NOTE: For mammograms, a report in lay terms will be sent to the patient. Approximately 15% of breast malignancies will not be visualized mammographically. In the management of a palpable breast mass, a negative mammogram must not discourage biopsy of a clinically suspicious lesion. Electronically Signed By: Georgina lucio/prabhu:09/25/2020 09:37:13 letter sent: Normal Exam ACR BI-RADS Category 2: Benign Finding(s) 3342F
== END ==
PROVIDERS: PCP Internal Medicine; Referring Provider Internal Medicine; Visit Provider Internal Medicine
DX: Z12.31 Encounter for screening mammogram for malignant neoplasm of breast (principal)
CPT/HCPCS: 77063; 77067

== ENCOUNTER → 2021-04-17 11:57 | Outpatient (CLI) | payer OTHER, SELFPAY ==
[2021-04-17 13:03] LABS: Alanine Aminotransferase 22 IU/L (<35); Albumin Globulin Ratio 1.3 (1.0-2.8); Alkaline Phosphatase 95 U/L (38-126); Aspartate Aminotransferase 24 IU/L (14-36); BUN Creatinine Ratio 12.1 (6-22); Bilirubin Total 0.4 mg/dL (0.2-1.3); Blood Urea Nitrogen 11 mg/dL (7-17); Calcium 9.4 mg/dL (8.4-10.2); Carbon Dioxide 25 mmol/L (22-32); Chloride 105 mmol/L (98-107); Cholesterol 242 mg/dL (140-199); Estimated Glomerular Filt Rate > 60.0 mL/min (>60); Globulin 3.1 g/dL (1.7-4.1); Glucose 136 mg/dL (80-110); HDL Cholesterol 35 mg/dL (40-60); HEMOLYSIS < 15 (0-50); LDL Cholesterol Calculated 162 mg/dL (<100); Potassium 4.1 mmol/L (3.4-5.1); Sodium 138 mmol/L (137-145); Total Protein 7.1 g/dL (6.3-8.2); Triglycerides 225 mg/dL (35-150)
== END ==
PROVIDERS: PCP Internal Medicine; Referring Provider Internal Medicine; Visit Provider Internal Medicine
DX: I10 Essential (primary) hypertension (principal); N18.30 Chronic kidney disease, stage 3 unspecified
CPT/HCPCS: 36415; 80053; 80061

== ENCOUNTER → 2021-10-10 16:13 | Outpatient (CLI) | payer OTHER, SELFPAY ==
--- NOTE | 2021-10-10 | DI.MG.S_ITS ---
BILATERAL DIGITAL SCREENING MAMMOGRAM 3D/2D WITH CAD: 10/10/2021 CLINICAL: Routine screening. Comparison is made to exams dated: 09/23/2020 mammogram, 02/26/2019 mammogram, and 01/19/2018 mammogram - [facility]. There are scattered fibroglandular elements in both breasts. Current study was also evaluated with a Computer Aided Detection (CAD) system. There are benign calcifications in both breasts. There also are benign vascular calcifications in both breasts. No significant masses, calcifications, or other findings are seen in either breast. There has been no significant interval change. IMPRESSION: BENIGN There is no mammographic evidence of malignancy. A 1 year screening mammogram is recommended. This exam was interpreted at Station ID: [id number]. NOTE: For mammograms, a report in lay terms will be sent to the patient. Approximately 15% of breast malignancies will not be visualized mammographically. In the management of a palpable breast mass, a negative mammogram must not discourage biopsy of a clinically suspicious lesion. Electronically Signed By: Manuel Aguilar acr/prabhu:10/10/2021 18:01:43 letter sent: Normal Exam ACR BI-RADS Category 2: Benign Finding(s) 3342F
== END ==
PROVIDERS: PCP Internal Medicine; Referring Provider Internal Medicine; Visit Provider Internal Medicine
DX: Z12.31 Encounter for screening mammogram for malignant neoplasm of breast (principal)
CPT/HCPCS: 77063; 77067

== ENCOUNTER → 2022-09-09 16:20 | Outpatient (CLI) | payer OTHER, SELFPAY ==
[2022-09-09 16:58] LABS: Alanine Aminotransferase 28 IU/L (<35); Albumin Globulin Ratio 1.1 (1.0-2.8); Alkaline Phosphatase 94 U/L (38-126); Aspartate Aminotransferase 36 IU/L (14-36); BUN Creatinine Ratio 17.4 (6-22); Bilirubin Total 0.5 mg/dL (0.2-1.3); Blood Urea Nitrogen 15 mg/dL (7-17); Calcium 8.7 mg/dL (8.4-10.2); Carbon Dioxide 27 mmol/L (22-32); Chloride 103 mmol/L (98-107); Estimated Glomerular Filt Rate > 60 mL/min (>60); Globulin 3.5 g/dL (1.7-4.1); Glucose 105 mg/dL (80-110); HEMOLYSIS 34 (0-50); Sodium 138 mmol/L (137-145); Total Protein 7.5 g/dL (6.3-8.2)
== END ==
PROVIDERS: PCP Internal Medicine; Referring Provider Internal Medicine; Visit Provider Internal Medicine
DX: I10 Essential (primary) hypertension (principal); N18.30 Chronic kidney disease, stage 3 unspecified; Z79.899 Other long term (current) drug therapy
CPT/HCPCS: 36415; 80053

== ENCOUNTER → 2022-12-23 15:29 | Outpatient (CLI) | payer OTHER, SELFPAY ==
--- NOTE | 2022-12-23 15:31 | DI.MG.S_ITS ---
BILATERAL DIGITAL SCREENING MAMMOGRAM 3D/2D WITH CAD: 12/23/2022 CLINICAL: Routine screening. Comparison is made to exams dated: 10/10/2021 mammogram, 09/23/2020 mammogram, and 02/26/2019 mammogram - [facility]. There are scattered areas of fibroglandular density in both breasts (category b / 25%-50% glandular tissue). Current study was also evaluated with a Computer Aided Detection (CAD) system. There are benign calcifications in both breasts. There also are benign vascular calcifications in both breasts. No significant masses, calcifications, or other findings are seen in either breast. There has been no significant interval change. IMPRESSION: BENIGN There is no mammographic evidence of malignancy. A 1 year screening mammogram is recommended. Based on the Tyrer Cuzick model (a risk assessment model) the patient's lifetime risk is 4.5% and her 10 year risk is 2.0%. According to the ACR, ACS, and NCCN guidelines, an annual breast MRI exam along with mammogram is recommended if the patient's lifetime risk is 20% or greater. This exam was interpreted at Station ID: [id number]. NOTE: For mammograms, a report in lay terms will be sent to the patient. Approximately 15% of breast malignancies will not be visualized mammographically. In the management of a palpable breast mass, a negative mammogram must not discourage biopsy of a clinically suspicious lesion. Electronically Signed By: Thierno johnston/prabhu:12/24/2022 07:52:19 letter sent: Normal Exam ACR BI-RADS Category 2: Benign Finding(s) 3342F
== END ==
PROVIDERS: PCP Internal Medicine; Referring Provider Internal Medicine; Visit Provider Internal Medicine
DX: Z12.31 Encounter for screening mammogram for malignant neoplasm of breast (principal)
CPT/HCPCS: 77063; 77067

== ENCOUNTER → 2023-12-24 16:52 | Outpatient (CLI) | payer OTHER, SELFPAY ==
--- NOTE | 2023-12-24 | DI.MG.S_ITS ---
BILATERAL DIGITAL SCREENING MAMMOGRAM 3D/2D WITH CAD: 12/24/2023 CLINICAL: Routine screening. Comparison is made to exams dated: 12/23/2022 mammogram, 09/23/2020 mammogram, and 10/10/2021 mammogram - [facility]. There are scattered areas of fibroglandular density in both breasts (category b / 25%-50% glandular tissue). Current study was also evaluated with a Computer Aided Detection (CAD) system. There is an asymmetry in the right breast middle depth inferior region seen on the mediolateral oblique view only. No other significant masses, calcifications, or other findings are seen in either breast. IMPRESSION: INCOMPLETE: NEEDS ADDITIONAL IMAGING EVALUATION The asymmetry in the right breast is indeterminate. Additional views with possible ultrasound are recommended. Based on the Tyrer Cuzick model (a risk assessment model) the patient's lifetime risk is 4.3% and her 10 year risk is 2.0%. According to the ACR, ACS, and NCCN guidelines, an annual breast MRI exam along with mammogram is recommended if the patient's lifetime risk is 20% or greater. This exam was interpreted at Station ID: [id number]. NOTE: For mammograms, a report in lay terms will be sent to the patient. Approximately 15% of breast malignancies will not be visualized mammographically. In the management of a palpable breast mass, a negative mammogram must not discourage biopsy of a clinically suspicious lesion. Electronically Signed By: Jcarlos Tripathi M.D. lc/:12/25/2023 12:22:23 letter sent: Additional Imaging Needed ACR BI-RADS Category 0: Incomplete 3340F
== END ==
LOC: MAMMO 16:52
PROVIDERS: PCP Internal Medicine; Referring Provider Internal Medicine; Visit Provider Internal Medicine
DX: Z12.31 Encounter for screening mammogram for malignant neoplasm of breast (principal); R92.323 Mammographic fibroglandular density, bilateral breasts
CPT/HCPCS: 77063; 77067

== ENCOUNTER → 2024-01-14 12:05 | Outpatient (CLI) | payer OTHER, SELFPAY ==
--- NOTE | 2024-01-14 | DI.MG.S_ITS ---
UNILATERAL RIGHT DIGITAL DIAGNOSTIC MAMMOGRAM 3D/2D WITH ADDITIONAL VIEWS: 01/14/2024 CLINICAL: Additional evaluation requested from prior study. Comparison is made to exams dated: 12/24/2023 mammogram, 12/23/2022 mammogram, 10/10/2021 mammogram, and 09/23/2020 mammogram - [facility]. There are scattered areas of fibroglandular density in the right breast (category b / 25%-50% glandular tissue). There is an asymmetry in the right breast middle depth inferior region seen on the mediolateral oblique view only. This is not seen in additional views. No other significant masses or calcifications are seen in the breast. Benign calcifications in the right breast. IMPRESSION: NEGATIVE There is no mammographic evidence of malignancy. The asymmetry in the right breast is consistent with fibroglandular tissue and is benign. A 1 year screening mammogram is recommended. Based on the Tyrer Cuzick model (a risk assessment model) the patient's lifetime risk is 4.3% and her 10 year risk is 2.0%. According to the ACR, ACS, and NCCN guidelines, an annual breast MRI exam along with mammogram is recommended if the patient's lifetime risk is 20% or greater. This exam was interpreted at Station ID: [id number]. NOTE: For mammograms, a report in lay terms will be sent to the patient. Approximately 15% of breast malignancies will not be visualized mammographically. In the management of a palpable breast mass, a negative mammogram must not discourage biopsy of a clinically suspicious lesion. Electronically Signed By: Edgardo Chavira M.D. [facility] [place]/:01/14/2024 12:51:52 letter sent: Normal Exam ACR BI-RADS Category 1: Negative [id number]
== END ==
PROVIDERS: PCP Internal Medicine; Referring Provider Internal Medicine; Visit Provider Internal Medicine
DX: R92.8 Other abnormal and inconclusive findings on diagnostic imaging of breast (principal); R92.321 Mammographic fibroglandular density, right breast
CPT/HCPCS: 77065; G0279

== ENCOUNTER 2024-03-19 09:36 | Day surgery (SDC) | payer OTHER, SELFPAY ==
[2024-03-19 10:00] VITALS: BP 140/82; PULSE 101; RESP 18; TEMP 36.4; O2SAT 94
[2024-03-19] MEDS: LACTATED RINGERS 1,000 ML 42 ML IV (10:21)
--- NOTE | 2024-03-19 10:29 | PM.HP.1 ---
History of Present Illness History of Present Illness Date Patient Seen: 03/19/24 Time Patient Seen: 10:34 Chief complaint: VTC Narrative: colon cancer screenin. Last scope was 11 years ago. 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) ja/mu-ism: [employer] travel history: over 6 months ago ([place] and back) leisure activities: reading and other ([employer], [employer], [employer], [employer] [facility] projects) Smoking Status: Former smoker Tobacco: How many years used: 6 (On and off.) Smokeless tobacco user: other (Cigarettes) quit status: quit date established (1989) second hand exposure: No alcohol intake: current substance use type: does not use Meds Home Medications and Allergies Home Medications Medication Instructions Recorded Confirmed Type esomeprazole magnesium 20 mg 20 mg PO QPM 09/06/19 03/19/24 History tablet,delayed release iron,carbonyl 65 mg-vitamin C 125 1 tab PO DAILY 09/06/19 03/19/24 History mg tablet,delayed release (Vitron-C) levocetirizine 5 mg tablet (Xyzal) 5 mg PO DAILY 09/09/22 03/19/24 History Potassium 1 tab PO DAILY 01/22/24 03/19/24 History cholecalciferol (vitamin D3) 25 25 mcg PO DAILY 01/22/24 03/19/24 History mcg (1,000 unit) capsule lisinopril 20 mg tablet 20 mg PO DAILY #90 tabs 01/22/24 03/19/24 Rx magnesium 1 tab PO DAILY 01/22/24 03/19/24 History multivitamin 1 tab PO DAILY 01/22/24 03/19/24 History peg 3350-sod sulf,tiaza-mxm-cll 1,000 ml PO DIRECTED #2,000 mL 02/26/24 03/19/24 Rx 178.7-7.3-0.5-1.12-0.9 gram oral soln (Suflave) lisinopril 20 mg tablet 20 mg PO DAILY 03/19/24 03/19/24 History Allergies Allergy/AdvReac Type Severity Reaction Status Date / Time CODEINE Allergy Mild NAUSEA AND Uncoded 03/19/24 09:55 UNABLE TO SLEEP From BENADRYL Allergy Mild ITCHING Uncoded 03/19/24 09:55 From TALWIN Allergy Mild NAUSEA Uncoded 03/19/24 09:55 MORPHINE Allergy Mild MEZA & Uncoded 03/19/24 09:55 VOMITING Review of Systems Review of Systems ROS: Yes All systems reviewed with the patient and are negative except as otherwise documented Exam Vital Signs (past 8 hours): - 03/19/24 10:00 Temperature 97.6 F Pulse Rate 101 H Respiratory Rate 18 Blood Pressure 140/82 Pulse Oximetry 94 Oxygen Delivery Method Room Air Oxygen Delivery Method Room Air Const General: cooperative and comfortable Nutritional Appearance: obese HENMT Head: normocephalic and atraumatic Ears: hearing grossly normal bilaterally Eyes Sclera: sclerae normal Neck Neck: trachea midline and No tender Resp Effort & Inspection: normal respiratory effort and able to speak in complete sentences Cardio Rate: tachycardic Rhythm: regular rhythm GI Inspection: non-distended Palpation: soft Skin General: atrophy and No pallor Neuro General: patient alert, patient awake and patient oriented x3 Psych Appearance: well kempt Mental Status: mental status grossly normal Affect: normal affect Judgment: judgment good Assessment & Plan Assessment & Plan narrative: Colon cancer screening with colonoscopy and anesthesia Time Spent With Patient Time with patient: less than 30 minutes
--- NOTE | 2024-03-19 10:41 | PM.OP.COLON ---
Operative Date/Time/Diagnoses Date of procedure: 03/19/24 Time of procedure: 10:42 Pre-op diagnosis: colon cancer screening Post-op diagnosis: same Procedure & Clinicians Study performed: colonoscopy with anesthesia Same procedure as scheduled: Yes Indications: colon cancer screening Surgeon: Justine Bueno Procedure Notes Procedure in detail: Preop diagnosis: Colon cancer screening Postop diagnosis: Same Operative procedure: Colonoscopy with anesthesia Surgeon: Teresa Bueno MD Findings: Large numerous descending colon diverticuli, no polyps Procedure: Patient placed in a lateral position. Rectal exam performed showing normal tone no masses. Colonoscope was inserted into the rectum and advanced to ileocecal valve with minimal difficulty. Insufflation extraction scope and the above findings. Retroflex was included in the cecum as well as the rectum. Impression: Severe diverticulosis of the descending colon. No polyps Plan: Repeat colonoscopy in 10 years unless otherwise indicated by change in clinical condition Findings: divertiulosis Specimen(s): none sent Complications: none Post-procedure Recommendations: Colonoscopy in 10 years Follow up: as needed Disposition: PACU
[2024-03-19 11:05] VITALS: BP 100/51; PULSE 84; RESP 16; TEMP 36.3; O2SAT 94
[2024-03-19 11:10] VITALS: BP 121/97; PULSE 85; RESP 16; O2SAT 96
[2024-03-19 11:15] VITALS: BP 141/72; PULSE 79; RESP 18; TEMP 36.6; O2SAT 96
[2024-03-19 11:18] VITALS: BP 138/73; PULSE 75; RESP 18; O2SAT 97
== END 2024-03-19 11:35 | disposition home or self-care (01) ==
PROVIDERS: PCP Internal Medicine; Referring Provider Surgery; Visit Provider Surgery
PROC: 0DJD8ZZ Inspection of Lower Intestinal Tract, Via Natural or Artificial Opening Endoscopic (ICD-10-PCS; CPT 45378; principal; 2024-03-19 10:15)
DX: Z12.11 Encounter for screening for malignant neoplasm of colon (principal); K57.30 Diverticulosis of large intestine without perforation or abscess without bleeding
CPT/HCPCS: 45378; J2704

== ENCOUNTER → 2024-05-12 13:02 | Outpatient (CLI) | payer OTHER, SELFPAY ==
[2024-05-12 13:55] LABS: Add Manual Diff / Slide Review NO; Basophils Absolute Auto 100 /uL (0-100); Basophils Percent Auto 0.9 % (0-2); Eosinophils Absolute Auto 200 /uL (0-450); Eosinophils Percent Auto 2.9 % (2-4); Hematocrit 39.1 % (36-46); Hemoglobin 13.3 g/dL (12.0-16.0); Lymphocytes Absolute Auto 2400 /uL (1100-4500); Lymphocytes Percent Auto 31.2 % (25-40); Mean Corpuscular Hemoglobin 30.5 PG (26-34); Mean Corpuscular Volume 89.6 fL (80-100); Monocytes Absolute Auto 600 /uL (0-900); Monocytes Percent Auto 7.7 % (3-14); Neutrophils Absolute Auto 4500 /uL (1500-7000); Neutrophils Percent Auto 57.3 % (50-75); Platelet Count 284 X10^3/uL (150-400); Red Blood Cell Count 4.37 X10^6/uL (4.0-5.2); Red Cell Distribution Width 13.6 % (11.6-14.8); White Blood Cell Count 7.8 X10^3/uL (4.5-11.0)
[2024-05-12 14:53] LABS: HEMOLYSIS < 15 (0-50); Iron 99 ug/dL (37-170)
[2024-05-12 14:55] LABS: Alanine Aminotransferase 41 IU/L (<35); Albumin 4.1 g/dL (3.5-5.0); Albumin Globulin Ratio 1.6 (1.0-2.8); Alkaline Phosphatase 90 U/L (38-126); Aspartate Aminotransferase 46 IU/L (14-36); BUN Creatinine Ratio 12.9 (6-22); Bilirubin Total 0.5 mg/dL (0.2-1.3); Blood Urea Nitrogen 15 mg/dL (7-17); Calcium 9.2 mg/dL (8.4-10.2); Carbon Dioxide 28 mmol/L (22-32); Chloride 106 mmol/L (98-107); Cholesterol 283 mg/dL (140-199); Estimated Glomerular Filt Rate 52 mL/min (>60); Globulin 2.6 g/dL (1.7-4.1); Glucose 137 mg/dL (80-110); HDL Cholesterol 42 mg/dL (40-60); HEMOLYSIS < 15 (0-50); LDL Cholesterol Calculated 182 mg/dL (<100); Potassium 4.6 mmol/L (3.4-5.1); Sodium 140 mmol/L (137-145); Total Protein 6.7 g/dL (6.3-8.2); Triglycerides 297 mg/dL (35-150)
[2024-05-12 15:04] LABS: Percent Iron Saturation 38 % (15-50); Total Iron Binding Capacity 260 ug/dL (265-497); Transferrin 208 mg/dL (206-381)
== END ==
PROVIDERS: PCP Internal Medicine; Referring Provider Internal Medicine; Visit Provider Internal Medicine
DX: I12.9 Hypertensive chronic kidney disease with stage 1 through stage 4 chronic kidney disease, or unspecified chronic kidney disease (principal); N18.30 Chronic kidney disease, stage 3 unspecified; D64.9 Anemia, unspecified; E61.1 Iron deficiency
CPT/HCPCS: 36415; 80053; 80061; 83540; 83550; 85025

== ENCOUNTER → 2024-09-14 08:37 | Outpatient (CLI) | payer OTHER, SELFPAY ==
[2024-09-14 09:06] LABS: Hemoglobin A1C% w Est Avg Glu 6.3 % (4.0-6.0)
[2024-09-14 09:11] LABS: Alanine Aminotransferase 28 IU/L (<35); Albumin 3.9 g/dL (3.5-5.0); Albumin Globulin Ratio 1.3 (1.0-2.8); Alkaline Phosphatase 79 U/L (38-126); Aspartate Aminotransferase 33 IU/L (14-36); BUN Creatinine Ratio 15.4 (6-22); Bilirubin Total 0.4 mg/dL (0.2-1.3); Blood Urea Nitrogen 19 mg/dL (7-17); Calcium 9.7 mg/dL (8.4-10.2); Carbon Dioxide 27 mmol/L (22-32); Chloride 101 mmol/L (98-107); Cholesterol 131 mg/dL (140-199); Estimated Glomerular Filt Rate 48 mL/min (>60); Glucose 148 mg/dL (80-110); HDL Cholesterol 42 mg/dL (40-60); HEMOLYSIS < 15 (0-50); LDL Cholesterol Calculated 58 mg/dL (<100); Potassium 4.6 mmol/L (3.4-5.1); Sodium 136 mmol/L (137-145); Total Protein 6.9 g/dL (6.3-8.2); Triglycerides 155 mg/dL (35-150)
[2024-09-14 09:40] LABS: Hepatitis B Surface Antigen NEGATIVE s/c (NEGATIVE)
[2024-09-14 09:58] LABS: Hep C Virus Ab w/Reflex Quant NEGATIVE s/c (NEGATIVE)
== END ==
PROVIDERS: PCP Internal Medicine; Referring Provider Internal Medicine; Visit Provider Internal Medicine
DX: I10 Essential (primary) hypertension (principal); N18.30 Chronic kidney disease, stage 3 unspecified; E78.2 Mixed hyperlipidemia; K73.9 Chronic hepatitis, unspecified; R73.9 Hyperglycemia, unspecified
CPT/HCPCS: 36415; 80053; 80061; 83036; 86706; 86803; 87340

== ENCOUNTER → 2024-12-14 09:26 | Outpatient (CLI) | payer OTHER, SELFPAY ==
[2024-12-14 10:46] LABS: Hemoglobin A1C% w Est Avg Glu 6.5 % (4.0-6.0)
[2024-12-14 10:55] LABS: BUN Creatinine Ratio 12.1 (6-22); Blood Urea Nitrogen 13 mg/dL (7-17); Calcium 9.5 mg/dL (8.4-10.2); Carbon Dioxide 29 mmol/L (22-32); Chloride 102 mmol/L (98-107); Estimated Glomerular Filt Rate 57 mL/min (>60); Glucose 139 mg/dL (80-110); HEMOLYSIS < 15 (0-50); Potassium 4.5 mmol/L (3.4-5.1); Sodium 139 mmol/L (137-145)
[2024-12-14 11:21] LABS: Creatinine Urine Random 78.89 mg/dL
[2024-12-14 11:42] LABS: Microalbumin Urine Random < 0.6 mg/dL (0-1.6)
== END ==
PROVIDERS: PCP Internal Medicine; Referring Provider Internal Medicine; Visit Provider Internal Medicine
DX: E11.9 Type 2 diabetes mellitus without complications (principal); I10 Essential (primary) hypertension
CPT/HCPCS: 36415; 80048; 82043; 82570; 83036

== ENCOUNTER → 2025-01-12 15:55 | Outpatient (CLI) | payer OTHER, SELFPAY ==
--- NOTE | 2025-01-19 13:16 | DIAB.MNT ---
Initial Diabetes Medical Nutrition Therapy Assessment Name: Concha Fung Date: 01/12/25 Time: 4pm Dx: Type II Diabetes Provider: Kaden Stafford Preferred Learning Style: Pt newly dx with T2DM. Has made dietary changes since dx, i.e. 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 1 yr ago was dx with diverticulosis and has been doing 4 capsule (=2 g fiber) of benefiber per day since). Note also CKD3. Denies N/V/C/D recently. Diet Recall: 9am: 1-2 c coffee with coffeemate creamer 1pm: boiled egg, cheese stick, 2 slices turkey, 1 whole grapefruit, 12 oz water or tea 4pm: handful mixed nuts with water 6pm:3-4 oz meat (poultry, pork) 1 and 1/2 cups salad or coleslaw + broccoli serving with water/tea, 1 serving applesauce 9 pm: 2 pieces dried flo before bed (unsure if added sugars or not) 3 16 oz bottles torres per day + meal time water Up at 830 am- bed by 12:30am Anthropometrics: Ht: 5 ft 5 in Wt: 236 lb Weight history: 241 lb and 9 oz on 12/21/24 252 lb May 2024 (-6% weight loss to date) Physical Activity: 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, 1-3 days/wk walking or video Self-Monitoring Blood Glucose: Does not take BG, is unable to prick self d/t fear Diabetes Medications: None currently, statin for lipids Pertinent Labs: A1c 6.5%, GFR 57, TG 155, Chol 131 Past Medical History: (Last Updated 09/20/24 @ 11:23 by Kaden Stafford MD) Chronic renal failure, stage 3 (moderate) COVID-19 (~07/2022) Diverticular disease of colon Diverticulitis Essential hypertension (09/17/12) Mixed hyperlipidemia Morbid obesity Type 2 diabetes mellitus without complication Nutrition Rx: Meal: 30-45 g Carbs Snack: 15-30 g Carbs Nutrition Diagnosis: - Intervention: This participant was very receptive. Provided appropriate educational handouts. Discussed the following topics: Completed intake assessment. Discussed barriers to care. Pathophysiology of T2DM HgA1c, its correlation to blood glucose numbers, and rationale for goal Plate Method, impact of macronutrients on blood sugar, meal timing, carbohydrate counting, pairing macronutrients and spreading out carbohydrates for better blood glucose management Recommended servings for carbohydrates at meals and snacks Nutrition for CKD3 -protein, sodium, plate method Brainstormed appropriate meal plan based on food preferences Role of physical activity and following provider guidelines for safety Created SMART goals for patient self-care and success. Goals: Resume walking 2-3 days per week 30 minutes Portioned fibrous carbs for satiety with dinner and snack, pt will consider adding 1/2 c back in at dinner Follow-up: RDN 4 [address] Rangel RD Clinical Dietitian P: [phone] Thank you for this referral
== END ==
PROVIDERS: PCP Internal Medicine; Referring Provider Internal Medicine
DX: E11.9 Type 2 diabetes mellitus without complications (principal); E78.2 Mixed hyperlipidemia; Z71.3 Dietary counseling and surveillance
CPT/HCPCS: 97802

== ENCOUNTER → 2025-02-10 17:36 | Outpatient (CLI) | payer OTHER, SELFPAY ==
--- NOTE | 2025-02-10 17:37 | DI.MG.S_ITS ---
MM screening mammo BI: 02/10/2025. BI-RADS: 2 CLINICAL: 65-year old female for bilateral screening mammogram. Tyrer-Cuzick lifetime risk of 4.0%. No personal or first-degree family history of breast cancer. PRIOR EXAMS 01/14/2024, 12/24/2023, 12/23/2022, 10/10/2021, 09/23/2020, 02/26/2019, 01/19/2018, 05/08/2016. MAMMOGRAPHY TECHNIQUE: 2D and 3D (tomosynthesis) digital mammographic views obtained, with additional images as needed for full coverage. Current study was also evaluated with a Computer Aided Detection (CAD) system. DENSITY B. There are scattered areas of fibroglandular density. MAMMOGRAPHY FINDINGS Bilateral: Benign-appearing calcifications noted. Typically-benign vascular calcifications also noted. There are no suspicious masses, calcifications, or other findings in the breast. IMPRESSION: * No evidence of malignancy with benign findings. RECOMMENDATIONS Bilateral * Annual screening mammography. OVERALL ASSESSMENT CATEGORY BI-RADS-2: Benign. The [employer] recommends annual screening mammography beginning at age 40 for women with average risk of breast cancer. ELECTRONICALLY SIGNED: Nilsa Barclay M.D. on 02/11/2025 at 12:29:24 PM PT Interpreting Station ID: [id number]
== END ==
PROVIDERS: PCP Internal Medicine; Referring Provider Internal Medicine; Visit Provider Internal Medicine
DX: Z12.31 Encounter for screening mammogram for malignant neoplasm of breast (principal)
CPT/HCPCS: 77063; 77067

== ENCOUNTER → 2025-02-22 16:03 | Outpatient (CLI) | payer OTHER, SELFPAY ==
--- NOTE | 2025-02-28 14:17 | DIAB.MNTFU ---
Follow-up Diabetes Medical Nutrition Therapy Assessment Name: Concha Fung Date: 02/22/25 Time:4pm Dx: Type II Diabetes Provider: Kaden Stafford Pt reports continuing with changes initially made when dx with T2DM. Continues to see weight loss. Reports continued success with switching snacks and reducing portion size of potatoes at dinner. Notes she doesn't feel deprived, is still able to have good quality of life with dietary changes. Is focusing on walking around in stores when shopping (i.e grocery and fabric stores) but still planning on taking daughter out for walks with weather improving now. Diet Recall: 9am: 1-2 c coffee with splash coffeemate creamer 1pm: boiled egg, cheese stick, 2 slices turkey, 1 whole grapefruit, 12 oz water or tea 4pm: handful mixed nuts with water 6pm:3-4 oz meat (poultry, pork), salad and nonstarchy veg, water/tea, 1 serving applesauce or 1/2c potatoes 9 pm: 2 pieces dried flo before bed, unsweetened 3 16 oz bottles torres per day + meal time water Remains the same except patient will sometimes have 1/2c potatoes with dinner for satiety and meal enjoyment Anthropometrics: Ht: 5 ft 5in Wt: 235 lb Weight history: 241 lb and 9 oz on 12/21/24 252 lb May 2024 (-6.75% weight loss to date) Physical Activity: 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, 1 day/wk walking or video Self-Monitoring Blood Glucose: Does not take BG, is unable to prick self d/t fear Diabetes Medications: None currently, statin for lipids Pertinent Labs: A1c 6.5%, GFR 57, TG 155, Chol 131 Past Medical History: (Last Updated 09/20/24 @ 11:23 by Kaden Stafford MD) Chronic renal failure, stage 3 (moderate) COVID-19 (~07/2022) Diverticular disease of colon Diverticulitis Essential hypertension (09/17/12) Mixed hyperlipidemia Morbid obesity Type 2 diabetes mellitus without complication Nutrition Rx: Meal: 30-45 g Carbs Snack: 15-30 g Carbs Nutrition Diagnosis: (Initial- improved) Food and nutrition related knowledge deficit r/t new diagnosis aeb pt wanting to know dietary patterns for BG management Intervention: Reviewed all changes patient has made so far, pt satisfied with changes and continued weight loss Discussed physical activity Goals: Resume walking or videos 2-3 days per week 30 minutes Follow-up: SELWYN JONES follow-up in 1 month Jeanette Rangel Registered Dietitian P: [phone] Thank you for this referral
== END ==
PROVIDERS: PCP Internal Medicine; Referring Provider Internal Medicine
DX: E11.9 Type 2 diabetes mellitus without complications (principal); E78.2 Mixed hyperlipidemia; Z71.3 Dietary counseling and surveillance
CPT/HCPCS: 97803

== ENCOUNTER → 2025-03-15 10:30 | Outpatient (CLI) | payer OTHER, SELFPAY ==
[2025-03-15 11:33] LABS: Hemoglobin A1C% w Est Avg Glu 6.2 % (4.0-6.0)
[2025-03-15 11:36] LABS: Alanine Aminotransferase 22 IU/L (<35); Albumin 4.1 g/dL (3.5-5.0); Albumin Globulin Ratio 1.5 (1.0-2.8); Alkaline Phosphatase 87 U/L (38-126); Aspartate Aminotransferase 26 IU/L (14-36); BUN Creatinine Ratio 18.9 (6-22); Bilirubin Total 0.4 mg/dL (0.2-1.3); Blood Urea Nitrogen 21 mg/dL (7-17); Calcium 9.5 mg/dL (8.4-10.2); Carbon Dioxide 25 mmol/L (22-32); Chloride 105 mmol/L (98-107); Cholesterol 143 mg/dL (140-199); Estimated Glomerular Filt Rate 54 mL/min (>60); Globulin 2.7 g/dL (1.7-4.1); Glucose 135 mg/dL (80-110); HDL Cholesterol 47 mg/dL (40-60); HEMOLYSIS < 15 (0-50); LDL Cholesterol Calculated 63 mg/dL (<100); Potassium 4.5 mmol/L (3.4-5.1); Sodium 139 mmol/L (137-145); Total Protein 6.8 g/dL (6.3-8.2); Triglycerides 163 mg/dL (35-150)
== END ==
PROVIDERS: PCP Internal Medicine; Referring Provider Internal Medicine; Visit Provider Internal Medicine
DX: I12.9 Hypertensive chronic kidney disease with stage 1 through stage 4 chronic kidney disease, or unspecified chronic kidney disease (principal); E11.9 Type 2 diabetes mellitus without complications; N18.30 Chronic kidney disease, stage 3 unspecified
CPT/HCPCS: 36415; 80053; 80061; 83036

== ENCOUNTER → 2025-03-29 15:56 | Outpatient (CLI) | payer OTHER, SELFPAY ==
--- NOTE | 2025-03-31 16:20 | DIAB.MNTFU ---
Follow-up Diabetes Medical Nutrition Therapy Assessment Name: Concha Fung Date: 03/29/25 Time:4pm Dx: Type II Diabetes Provider: Kaden Stafford Pt reports continued modest weight loss, reduced A1c%, and increased movement. Has been going to chiropractor, which has significantly reduced pain. Diet Recall: 9am: 1-2 c coffee with splash coffeemate creamer 1pm: boiled egg, cheese stick, 2 slices turkey, 1 whole grapefruit, 12 oz water or tea 4pm: handful mixed nuts with water, veggie tray with 2 tbsp ranch 6pm:3-4 oz meat (poultry, pork), salad and nonstarchy veg, water/tea, 1 serving applesauce, 1/2c potatoes 9 pm: 2 pieces dried flo before bed, unsweetened 3 16 oz bottles torres per day + meal time water Anthropometrics: Ht: 5 ft 5in Wt: 233-237 lb Weight history: 237 lb on 03/21/25 at PCP, pt reports weight after Easter was 233 lb 241 lb and 9 oz on 12/21/24 252 lb May 2024 (-6.75% weight loss to date) Physical Activity: Still walking in stores 1x/wk and went on walk with daughter yesterday. Is outside gardening more, 2-3x/wk. 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 Self-Monitoring Blood Glucose: Does not take BG, is unable to prick self d/t fear Diabetes Medications: None currently, statin for lipids Pertinent Labs: A1c 6.5% on 12/14/24, 6.2% on 03/15/25 Past Medical History: (Last Updated 09/20/24 @ 11:23 by Kaden Stafford MD) Chronic renal failure, stage 3 (moderate) COVID-19 (~07/2022) Diverticular disease of colon Diverticulitis Essential hypertension (09/17/12) Mixed hyperlipidemia Morbid obesity Type 2 diabetes mellitus without complication Nutrition Rx: Meal: 30-45 g Carbs Snack: 15-30 g Carbs Nutrition Diagnosis: (Initial- improved) Food and nutrition related knowledge deficit r/t new diagnosis aeb pt wanting to know dietary patterns for BG management Intervention: Reviewed nutrition for CKD including appropriate protein intake and sodium and provided handout Physical activity and strength building exercises Goals: Walking 2-3 days per week 30 minutes (improving) Follow-up: RD follow-up in 6 months Jeanette Rangel Registered Dietitian P: [phone] Thank you for this referral
== END ==
LOC: DIET 15:56
PROVIDERS: PCP Internal Medicine
DX: E11.9 Type 2 diabetes mellitus without complications (principal); Z71.3 Dietary counseling and surveillance
CPT/HCPCS: 97803

== ENCOUNTER → 2025-09-13 10:03 | Outpatient (CLI) | payer OTHER, SELFPAY ==
[2025-09-13 11:37] LABS: Hemoglobin A1C% w Est Avg Glu 6.7 % (4.0-6.0)
[2025-09-13 12:10] LABS: Alanine Aminotransferase 22 IU/L (<35); Albumin 4.1 g/dL (3.5-5.0); Albumin Globulin Ratio 1.5 (1.0-2.8); Alkaline Phosphatase 99 U/L (38-126); Blood Urea Nitrogen 18 mg/dL (7-17); Calcium 9.6 mg/dL (8.4-10.2); Carbon Dioxide 29 mmol/L (22-32); Chloride 104 mmol/L (98-107); Cholesterol 137 mg/dL (140-199); Estimated Glomerular Filt Rate 57 mL/min (>60); Globulin 2.8 g/dL (1.7-4.1); Glucose 137 mg/dL (70-99); HDL Cholesterol 52 mg/dL (40-60); HEMOLYSIS < 15 (0-50); Potassium 5.1 mmol/L (3.4-5.1); Sodium 139 mmol/L (137-145); Total Protein 6.9 g/dL (6.3-8.2); Triglycerides 118 mg/dL (35-150)
== END ==
PROVIDERS: PCP Internal Medicine; Referring Provider Internal Medicine; Visit Provider Internal Medicine
DX: E11.9 Type 2 diabetes mellitus without complications (principal); N18.30 Chronic kidney disease, stage 3 unspecified; E78.2 Mixed hyperlipidemia; I10 Essential (primary) hypertension
CPT/HCPCS: 36415; 80053; 80061; 83036

== ENCOUNTER → 2025-09-27 15:56 | Outpatient (CLI) | payer OTHER, SELFPAY ==
--- NOTE | 2025-09-28 13:49 | DIAB.MNTFU ---
Follow-up Diabetes Medical Nutrition Therapy Assessment Name: Concha Fung Date:09/27/25 Time:4pm Dx: Type II Diabetes Pt reporting initially losing 20 lb since start of dietary changes, but has been unable to lose anymore weight since May. Does weekly weigh ins at home and has been consistently around 232-235#. Reviewed recent A1c. Contributes increase in A1c to eating more fruit over the summer - cherries and grapes in the evening. Doesn't take BG d/t fear of needles and doesn't want CGM. Went to eye doctor and reports they told her she has no complications r/t DM. 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, 1 day of walk in store while shopping; has been more active in home and garden lately than normal since seeing chiropractor for back pain- able to do more household activities than before Pertinent Labs: A1c 6.5% on 12/14/24, 6.2% on 03/15/25, 6.7% 09/13/25 Past Medical History: (Last Updated 09/20/24 @ 11:23 by Kaden Stafford MD) Chronic renal failure, stage 3 (moderate) COVID-19 (~07/2022) Diverticular disease of colon Diverticulitis Essential hypertension (09/17/12) Mixed hyperlipidemia Morbid obesity Type 2 diabetes mellitus without complication Nutrition Diagnosis: Food and nutrition related knowledge deficit r/t inconsistent protein intakes, not pairing evening CHO snack with protein source aeb diet recall with some days 4 oz meat at dinner being only protein source, fruit before bed with no protein source Physical inactivity r/t limited moderate intensity level activities performed for sustained time period aeb pt assessment doing light intensity exercises or lifting heavy person/thing for 1 or 2 times Intervention: This participant was very receptive. Provided appropriate educational handouts. Discussed the following topics: Reviewed diet recall, potential reasons for rise in A1c Physical activity, moderate intensity level beyond household activities and walking in store Need for protein if just having salad for lunch Goals: 2 eggs with salad 1/2 c cottage cheese with 15-30 g CHO serving fruit if having evening snack Pt considering getting treadmill for indoor walking when weather is poor, encouraged 2 days of moderate intensity walking or video 20-30 minutes beyond current baseline activity 1 week of food log with portions for assessment as desired EER: 55 g protein (.8 g/kg per CKD3 w/ DM) Follow-up: RD follow-up in [address] Clinical Dietitian P: [phone] Thank you for this referral
== END ==
LOC: DIET 15:57
PROVIDERS: PCP Internal Medicine; Referring Provider Internal Medicine
DX: E11.9 Type 2 diabetes mellitus without complications (principal); Z71.3 Dietary counseling and surveillance
CPT/HCPCS: 97803

== ENCOUNTER → 2025-11-01 15:59 | Outpatient (CLI) | payer OTHER, SELFPAY ==
--- NOTE | 2025-11-01 16:55 | DIAB.MNTFU ---
Follow-up Diabetes Medical Nutrition Therapy Assessment Name: Concha Fung Date:11/01/25 Time:4pm Dx: Type II Diabetes Pt reports increasing protein at meals and adding more kcals in and losing additional 2 lb. Would like outline of daily protein and carb amounts to aim for. 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, 1 day of walk in store while shopping; has been more active in home and garden lately than normal since seeing chiropractor for back pain- able to do more household activities than before Diabetes Medications: none Pertinent Labs: A1c 6.5% on 12/14/24, 6.2% on 03/15/25, 6.7% 09/13/25 Past Medical History: (Last Updated 09/20/24 @ 11:23 by Kaden Stafford MD) Chronic renal failure, stage 3 (moderate) COVID-19 (~07/2022) Diverticular disease of colon Diverticulitis Essential hypertension (09/17/12) Mixed hyperlipidemia Morbid obesity Type 2 diabetes mellitus without complication Nutrition Rx: Carbohydrates: Daily: 40% kcals (pt doing lower CHO) = 120 g daily Meal:30-45 g CHO Snack:15 g CHO Protein: 55 g protein (.8 g/kg adjusted IBW per CKD w/ DM) Nutrition Diagnosis: Resolved: Food and nutrition related knowledge deficit r/t inconsistent protein intakes, not pairing evening CHO snack with protein source aeb diet recall with some days 4 oz meat at dinner being only protein source, fruit before bed with no protein source Intervention: This participant was very receptive. Provided appropriate educational handouts. Discussed the following topics: Reviewed diet recalls and protein, carbs, fiber in meals Reviewed nutrition facts label reading for carbs, added sugar, sodium Discussed getting enough calories/protein in daily Provided g of protein and carbs to aim for daily and generalized plan of how to break it down at each meal based on pt's meal patterns Goals: Continue with current meal plan Continue to aim for 150 minutes of moderate intensity exercise weekly Follow-up: 6 months, sooner as needed Jeanette Rangel, Registered Dietitian P: [phone] Thank you for this referral
== END ==
PROVIDERS: PCP Internal Medicine; Referring Provider Internal Medicine
DX: E11.9 Type 2 diabetes mellitus without complications (principal); Z71.3 Dietary counseling and surveillance
CPT/HCPCS: 97803